=== PATIENT | male | born 1950 | race Caucasian/White ===

== ENCOUNTER 2021-04-05 07:56 | Emergency (ER) | payer OTHER ==
[~2021-04-05] VITALS: Ht 165.1 cm; Wt 75.0 kg
[2021-04-05] MEDS ORDERED: DIPH28.34 TP (08:47)
[2021-04-05 09:11] VITALS: BP 128/95
== END 2021-04-05 09:11 | disposition home or self-care (01) ==
LOC: ER 07:56
DX: S40.862A Insect bite (nonvenomous) of left upper arm, initial encounter (principal); S40.861A Insect bite (nonvenomous) of right upper arm, initial encounter; S80.862A Insect bite (nonvenomous), left lower leg, initial encounter; S80.861A Insect bite (nonvenomous), right lower leg, initial encounter; S20.369A Insect bite (nonvenomous) of unspecified front wall of thorax, initial encounter; W57.XXXA Bitten or stung by nonvenomous insect and other nonvenomous arthropods, initial encounter; Y93.89 Activity, other specified; Y92.89 Other specified places as the place of occurrence of the external cause
CPT/HCPCS: 99282

== ENCOUNTER 2021-11-11 15:00 | Emergency (ER) | payer MEDICAID, OTHER ==
[~2021-11-11] VITALS: Ht 157.5 cm; Wt 73.0 kg
[~2021-11-11 15:00] MED LIST: DIPH28.34 TP
[2021-11-11 15:07] VITALS: BP 157/101
[2021-11-11] MEDS ORDERED: ACETAMINOPHEN 325MG TABLET PO NR (17:15)
[2021-11-11] MEDS ORDERED: BACL-141 MT (17:15)
[2021-11-11] MEDS ORDERED: ACET-2708 MT (17:15)
[2021-11-11] MEDS ORDERED: LIDO700A15 TP (17:15)
== END 2021-11-11 17:55 | disposition home or self-care (01) ==
LOC: ER 15:00
DX: M25.561 Pain in right knee (principal); M23.91 Unspecified internal derangement of right knee; Z91.81 History of falling; I10 Essential (primary) hypertension; Z72.0 Tobacco use
CPT/HCPCS: 73560; 99283

== ENCOUNTER 2022-01-06 10:02 | Emergency (ER) | payer MEDICAID ==
[~2022-01-06] VITALS: Ht 165.1 cm; Wt 70.0 kg
[~2022-01-06 10:02] MED LIST changes: +ACET-2708 MT; +BACL-141 MT; +LIDO700A15 TP
[2022-01-06 10:09] VITALS: BP 147/99
[2022-01-06] MEDS ORDERED: SULF1TAB47 PO (10:56)
[2022-01-06] MEDS ORDERED: CEPH500T PO (10:56)
[2022-01-06] MEDS ORDERED: TOPUD PO (10:56)
[2022-01-06] MEDS ORDERED: ACETAMINOPHEN 325MG TABLET PO ONE (11:00)
== END 2022-01-06 12:15 | disposition home or self-care (01) ==
LOC: ER 10:02
DX: S50.862A Insect bite (nonvenomous) of left forearm, initial encounter (principal); L03.114 Cellulitis of left upper limb; W57.XXXA Bitten or stung by nonvenomous insect and other nonvenomous arthropods, initial encounter; Y93.89 Activity, other specified; Y92.89 Other specified places as the place of occurrence of the external cause
CPT/HCPCS: 99283